=== PATIENT | male | born 1990 | race Caucasian/White ===

== ENCOUNTER 2016-09-24 08:59 | Emergency (ER) | payer OTHER, SELFPAY ==
--- NOTE | 2016-09-24 09:26 | ED.PDOC ---
History of Present Illness - General Chief Complaint: Abdominal Pain Stated Complaint: abd pain and vomitting Time Seen by Provider: 09/24/16 09:22 Source: patient, RN notes reviewed, Vital Signs reviewed Exam Limitations: no limitations - History of Present Illness Initial Comments: Patient is a 25 y/o male with a history of bradycardia who woke up with severe abdominal pain at about 2 am. He then started vomiting at about 5 am. He threw up about 5 times, the last being bilious. His pain initially was a burning, however he is unable to describe it at this time. It started in the epigastric area, and is now fairly generalized. Timing/Duration: 4-6 hours Severity: severe Improving Factors: nothing Worsening Factors: nothing Associated Symptoms: nausea/vomiting Allergies/Adverse Reactions: Allergies NO KNOWN ALLERGY Allergy (Verified 09/24/16 09:25) Home Medications: Ambulatory Orders Aspirin [Aspirin EC] 81 mg PO BEDTIME 05/14/16 Metoprolol Succinate [Metoprolol Succinate ER] 25 mg PO BEDTIME 05/14/16 Acetaminophen W/ Codeine [Tylenol W/ CODEINE #3] 1 ea PO Q6H PRN #15 09/24/16 Divalproex Sodium [Depakote ER] 500 mg PO BID 09/24/16 Ondansetron [Zofran Odt] 8 mg PO Q8H PRN #10 tab 09/24/16 Review of Systems - Review of Systems Constitutional: States: no symptoms reported EENTM: States: nose congestion Respiratory: States: no symptoms reported Cardiology: States: no symptoms reported Gastrointestinal/Abdominal: States: abdominal pain, nausea, vomiting. Denies: constipation, diarrhea Genitourinary: States: no symptoms reported Musculoskeletal: States: back pain - chronic Skin: States: no symptoms reported Neurological: States: no symptoms reported Endocrine: States: no symptoms reported Hematologic/Lymphatic: States: no symptoms reported Past Medical History (General) - Patient Medical History Hx Seizures: Yes - new dx 12/2011 Hx Stroke: No Hx Dementia: No Hx Asthma: No Hx of COPD: No Hx Cardiac Disorders: Yes Hx Congestive Heart Failure: No Hx Pacemaker: Yes - 2012 Hx Hypertension: Yes Hx Thyroid Disease: No Hx Diabetes: No Hx Gastroesophageal Reflux: No Hx Renal Disease: No Hx of HIV: No Hx MRSA: No Surgical History: pacemaker, tonsillectomy - Vaccination History Hx Tetanus, Diphtheria Vaccination: No Hx Influenza Vaccination: No Hx Pneumococcal Vaccination: No Immunizations Up to Date: No - Social History Hx Tobacco Use: No Hx Alcohol Use: No Hx Substance Use: No - Female History Patient : No Family Medical History - Family History Father Family History: No Known Living Status: Still Living Physical Exam - Physical Exam General Appearance: Alert, Comfortable, No apparent distress, Obese Eye Exam: bilateral normal Ears, Nose, Throat: hearing grossly normal, normal ENT inspection Respiratory: lungs clear, normal breath sounds, no respiratory distress, no accessory muscle use Cardiovascular/Chest: regular rate, rhythm, no edema, no gallop, no murmur Gastrointestinal/Abdominal: normal bowel sounds, soft, no organomegaly, tenderness - epigastric and RUQ--+ [place] Extremity: normal range of motion, non-tender, normal inspection, no pedal edema , no calf tenderness Neurologic: alert, normal mood/affect, oriented x 3 Skin Exam: normal color, warm/dry Progress - Results/Orders Results/Orders: 09/24/16 09/24/16 09:13 11:20 Temperature 98.7 F 98.4 F Pulse Rate [ 77 62 monitor] Respiratory 20 Rate Blood Pressure 136/70 109/71 [Left Arm] O2 Sat by Pulse 97 92 L Oximetry Laboratory Results WBC 9.8 K/mm3 (4.8-10.8) 09/24/16 09:30 RBC 4.79 M/mm3 (4.70-6.10) 09/24/16 09:30 Hgb 14.6 gm/dL (14.0-18.0) 09/24/16 09:30 Hct 42.6 % (42.0-52.0) 09/24/16 09:30 MCV 89.0 fl (80.0-94.0) 09/24/16 09:30 MCH 30.5 pg (27.0-31.0) 09/24/16 09:30 MCHC 34.3 g/dL (33.0-37.0) 09/24/16 09:30 RDW 13.6 % (11.5-14.5) 09/24/16 09:30 Plt Count 186 K/mm3 (130-400) 09/24/16 09:30 MPV 9.1 fl (7.40-10.4) 09/24/16 09:30 Absolute Neuts (auto) 4.40 K/uL (1.8-6.8) 09/24/16 09:30 Absolute Lymphs (auto) 4.40 K/uL (1.0-3.4) H 09/24/16 09:30 Absolute Monos (auto) 0.70 K/uL (0.2-0.8) 09/24/16 09:30 Absolute Eos (auto) 0.20 K/uL (0.0-0.4) 09/24/16 09:30 Absolute Basos (auto) 0.10 K/uL (0.0-0.1) 09/24/16 09:30 Neutrophils % 45.2 % (42.0-78.0) 09/24/16 09:30 Lymphocytes % 44.4 % (20.0-50.0) 09/24/16 09:30 Monocytes % 7.6 % (2.0-9.0) 09/24/16 09:30 Eosinophils % 2.0 % (1.0-5.0) 09/24/16 09:30 Basophils % 0.8 % (0.0-2.0) 09/24/16 09:30 Sodium 140 mmol/L (135-145) 09/24/16 09:30 Potassium 4.4 mmol/L (3.6-5.0) 09/24/16 09:30 Chloride 102 mmol/L (101-111) 09/24/16 09:30 Carbon Dioxide 28 mmol/L (21-31) 09/24/16 09:30 Anion Gap 14.4 (12-18) 09/24/16 09:30 BUN 12 mg/dL (7-18) 09/24/16 09:30 Creatinine 0.83 mg/dL (0.6-1.3) 09/24/16 09:30 BUN/Creatinine Ratio 14.5 (10-20) 09/24/16 09:30 Random Glucose 108 mg/dL (70-105) H 09/24/16 09:30 Serum Osmolality 279.7 mOsm/L (275-295) 09/24/16 09:30 Calcium 9.5 mg/dL (8.4-10.2) 09/24/16 09:30 Total Bilirubin 0.3 mg/dL (0.2-1.0) 09/24/16 09:30 AST 47 IU/L (10-42) H 09/24/16 09:30 ALT 94 IU/L (10-60) H 09/24/16 09:30 Alkaline Phosphatase 59 IU/L (42-121) 09/24/16 09:30 Serum Total Protein 7.7 gm/dL (6.4-8.2) 09/24/16 09:30 Albumin 4.1 g/dl (3.2-5.5) 09/24/16 09:30 Globulin 3.6 gm/dL (2.3-3.5) H 09/24/16 09:30 Albumin/Globulin Ratio 1.1 (1.1-1.9) 09/24/16 09:30 Lipase 42 U/L (22-51) 09/24/16 10:30 Urine Color Yellow (Yellow) 09/24/16 09:35 Urine Appearance Clear (Clear) 09/24/16 09:35 Urine pH 7.0 (4.5-7.8) 09/24/16 09:35 Ur Specific [place] >= 1.030 (1.005-1.030) 09/24/16 09:35 Urine Protein Negative mg/dL 09/24/16 09:35 Urine Glucose (UA) Negative mg/dL (Negative) 09/24/16 09:35 Urine Ketones Negative mg/dL (NEGATIVE) 09/24/16 09:35 Urine Blood Negative (Negative) 09/24/16 09:35 Urine Nitrite Negative 09/24/16 09:35 Urine Bilirubin Negative (NEGATIVE) 09/24/16 09:35 Urine Urobilinogen 0.2 mg/dL (0.2-1.0) 09/24/16 09:35 Ur Leukocyte Esterase Negative (Negative) 09/24/16 09:35 Urine RBC 0 /hpf 09/24/16 09:35 Urine WBC 0 /hpf 09/24/16 09:35 Ur Epithelial Cells 0-1 /hpf 09/24/16 09:35 Urine Bacteria 0 09/24/16 09:35 - EKG/XRAY/CT XRAY: abdomen Xray Comments: No acute process Departure - Departure Clinical Impression: Biliary colic symptom Time of Disposition: 12:35 Disposition: Discharge to Home or Self Care Condition: Fair Departure Forms: ED Discharge - Pt. Copy, Patient Portal Self Enrollment Instructions: DI for Abdominal Pain-Adult Diet: low fat, low cholesterol Referrals: Justyna Roa NP [Primary Care Provider] - 1-5 Days Prescriptions: Acetaminophen W/ Codeine [Tylenol W/ CODEINE #3] 1 ea PO Q6H PRN #15 PRN Reason: Abdominal Distress Ondansetron [Zofran Odt] 8 mg PO Q8H PRN #10 tab PRN Reason: Nausea/Vomiting Home Medications: Ambulatory Orders Aspirin [Aspirin EC] 81 mg PO BEDTIME 05/14/16 Metoprolol Succinate [Metoprolol Succinate ER] 25 mg PO BEDTIME 05/14/16 Acetaminophen W/ Codeine [Tylenol W/ CODEINE #3] 1 ea PO Q6H PRN #15 09/24/16 Divalproex Sodium [Depakote ER] 500 mg PO BID 09/24/16 Ondansetron [Zofran Odt] 8 mg PO Q8H PRN #10 tab 09/24/16 Additional Instructions: Follow up in ED for any increasing, non-relenting pain or fever.
[2016-09-24 11:21] VITALS: TEMP 98.4
--- NOTE | 2016-09-24 12:17 | RAD ---
EXAM DESCRIPTION: Abdomen Series CLINICAL HISTORY: RUQ/epigastric pain FINDINGS/ IMPRESSION: Cardiac pacemaker. No acute cardiopulmonary process Normal bowel gas pattern. No pneumatosis or free intraperitoneal air No organomegaly or obvious abdominal mass lesion No pathologic calcification Electronically signed by: Jordy Dubose MD 09/24/2016 12:16 PM [employer]
[2016-09-24 12:48] VITALS: BP 120/80; O2SAT 94
== END 2016-09-24 12:48 | disposition home or self-care (01) ==
LOC: ER 08:59
DX: K80.50 Calculus of bile duct without cholangitis or cholecystitis without obstruction (principal); I10 Essential (primary) hypertension; G40.909 Epilepsy, unspecified, not intractable, without status epilepticus; Z95.0 Presence of cardiac pacemaker; Z79.82 Long term (current) use of aspirin; Z79.899 Other long term (current) drug therapy

== ENCOUNTER → 2017-02-04 | Outpatient (CLI) | payer OTHER | END | disposition home or self-care (01) | LOC: LAB.O 08:13 | PROVIDERS: ATTEND Psychiatry & Neurology Neurology | DX: E55.9 Vitamin D deficiency, unspecified (principal); Z79.899 Other long term (current) drug therapy ==

== ENCOUNTER 2017-05-22 17:09 | Emergency (ER) | payer SELFPAY ==
--- NOTE | 2017-05-22 17:30 | ED.PDOC ---
History of Present Illness - General Chief Complaint: Lower Extremity Injury Stated Complaint: L ankle discomfort Time Seen by Provider: 05/22/17 17:27 Source: patient, RN notes reviewed, Vital Signs reviewed Exam Limitations: no limitations - History of Present Illness Initial Comments: Patient comes in with c/o left ankle pain for 2 days. He is having pain with movement and with walking. Denies any injury. He is concerned he may be having another gout flare up. Occurred: yesterday Pain - Lower Extremity: severe: Left Ankle Method of Injury: unknown Improving Factors: immobilization, rest Worsening Factors: movement Allergies/Adverse Reactions: Allergies NO KNOWN ALLERGY Allergy (Verified 05/22/17 17:22) Home Medications: Ambulatory Orders Aspirin [Aspirin EC] 81 mg PO BEDTIME 05/14/16 Metoprolol Succinate [Metoprolol Succinate ER] 25 mg PO BEDTIME 05/14/16 Divalproex Sodium [Depakote ER] 500 mg PO BID 09/24/16 Indomethacin ER [Indocin ER] 75 mg PO BID #20 cap 05/22/17 Review of Systems - Review of Systems Constitutional: States: no symptoms reported Respiratory: States: no symptoms reported Cardiology: States: no symptoms reported Musculoskeletal: States: see HPI, joint pain - L ankle, joint swelling - L lateral ankle Skin: States: no symptoms reported Neurological: States: no symptoms reported All other Systems: No Change from Baseline Past Medical History (General) - Patient Medical History Hx Seizures: Yes - new dx 12/2011; last seizure 2015 Hx Stroke: No Hx Dementia: No Hx Asthma: No Hx of COPD: No Hx Cardiac Disorders: Yes Hx Congestive Heart Failure: No Hx Pacemaker: Yes - 2011 Hx Hypertension: Yes Hx Thyroid Disease: No Hx Diabetes: No Hx Gastroesophageal Reflux: No Hx Renal Disease: No Hx of HIV: No Hx MRSA: No Surgical History: pacemaker, tonsillectomy - Vaccination History Hx Tetanus, Diphtheria Vaccination: No Hx Influenza Vaccination: No Hx Pneumococcal Vaccination: No - Social History Hx Tobacco Use: No Hx Alcohol Use: No Hx Substance Use: No - Female History Patient : No Family Medical History - Family History Father Family History: No Known Living Status: Still Living Physical Exam - Physical Exam General Appearance: Alert, Comfortable, No apparent distress, Well Developed, Well Groomed, Well Hydrated Cardiovascular/Respiratory: normal peripheral pulses, no respiratory distress Leg: normal inspection, non-tender, no evidence of injury, normal ROM Knee: normal inspection, non-tender, no evidence of injury, normal ROM Ankle: limited ROM - due to pain, pain, soft tissue tenderness - Lateral ankle, swelling - Lateral L ankle, other - Skin is mildly erythematous and warm to touch Foot: normal inspection, non-tender, no evidence of injury, normal ROM Neuro/Tendon: normal sensation, normal motor functions, normal tendon functions , responds to pain, no evidence tendon injury Mental Status: alert, oriented x 3 Skin: warm/dry Comments: Vital Signs 05/22/17 17:16 Temperature 99.1 F Pulse Rate [ 95 H Left Radial] Respiratory 18 Rate Blood Pressure 146/85 [Left Arm] O2 Sat by Pulse 97 Oximetry Progress - Progress Progress: 05/22/17 18:14 Discussed nl X-ray and elevated Uric Acid level Will treat with Indocin ER but does need to follow up with PCP to start daily medication for gout - EKG/XRAY/CT XRAY: ankle - Normal per Radiologist Departure - Departure Clinical Impression: Acute gout of left ankle Qualifiers: Gout etiology: idiopathic Qualified Code(s): M10.072 - Idiopathic gout, left ankle and foot Time of Disposition: 18:16 Disposition: Discharge to Home or Self Care Condition: Good Departure Forms: ED Discharge - Pt. Copy, Patient Portal Self Enrollment, Work Release Form Instructions: DI for Gout Diet: other - Look up a Gout Diet and start following Activity: increase activity as tolerated Referrals: Nallely Marte [employer] [Primary Care Provider] - 1-2 Weeks (To recheck Uric Acid level and start treatment) Prescriptions: Indomethacin ER [Indocin ER] 75 mg PO BID #20 cap Home Medications: Ambulatory Orders Aspirin [Aspirin EC] 81 mg PO BEDTIME 05/14/16 Metoprolol Succinate [Metoprolol Succinate ER] 25 mg PO BEDTIME 05/14/16 Divalproex Sodium [Depakote ER] 500 mg PO BID 09/24/16 Indomethacin ER [Indocin ER] 75 mg PO BID #20 cap 05/22/17
--- NOTE | 2017-05-22 17:49 | RAD ---
EXAM DESCRIPTION: Ankle,Left 3 Views CLINICAL HISTORY: 26 years, Male, Pain with movement COMPARISON: May 14, 2016 TECHNIQUE: AP/lateral/oblique of the ankle FINDINGS: Three views of the left ankle demonstrate soft tissue swelling laterally. Mortise is well-maintained. No fracture or deformity or other abnormalities are noted. Osteonecrosis of the talar dome is not apparent. IMPRESSION: 1. Soft tissue swelling over the lateral malleolus, otherwise normal left ankle. Electronically signed by: Jordy Rogers MD 05/22/2017 5:48 PM CDT
[2017-05-22] MEDS ORDERED: INDOMETHACIN 75 MG PO ONE (18:14)
[2017-05-22 18:28] VITALS: BP 138/84; TEMP 99.4; O2SAT 98
[2017-05-22] MEDS ORDERED: INDOMETHACIN CAP 25 MG CAP PO ONE (18:30)
== END 2017-05-22 18:43 | disposition home or self-care (01) ==
LOC: ER 17:09
DX: M10.072 Idiopathic gout, left ankle and foot (principal); I10 Essential (primary) hypertension; Z95.0 Presence of cardiac pacemaker; Z79.82 Long term (current) use of aspirin; Z79.899 Other long term (current) drug therapy

== ENCOUNTER 2019-06-26 12:56 | Emergency (ER) | payer OTHER, SELFPAY ==
[2019-06-26] MEDS ORDERED: INDOMETHACIN CAP 25 MG CAP PO ONE (14:18)
[2019-06-26] MEDS ORDERED: HYDROcodone 10MG/APAP 325MG 1 EA TAB PO ONE (14:18)
--- NOTE | 2019-06-26 15:35 | ED.PDOC ---
History of Present Illness - General Chief Complaint: General Stated Complaint: R knee pain/non trauma Time Seen by Provider: 06/26/19 14:17 - History of Present Illness Initial Comments: The patient is a 28 year old male with history of sick sinus syndrome s/p AICD placement and history of gout who presents with right knee pain. The patient states that he is not currently on any medications. Says that his knee started gradually hurting two days ago. He was still able to walk on it until today when he has had difficulty walking and bending it. He has been afebrile. No history of trauma. No other complaints at this time. Allergies/Adverse Reactions: Allergies NO KNOWN ALLERGY Allergy (Verified 06/26/19 14:26) Home Medications: Ambulatory Orders Aspirin [Aspirin EC] 81 mg PO BEDTIME 05/14/16 Metoprolol Succinate [Metoprolol Succinate ER] 25 mg PO BEDTIME 05/14/16 Divalproex Sodium [Depakote ER] 500 mg PO BID 09/24/16 Indomethacin ER [Indocin ER] 75 mg PO BID #20 cap 05/22/17 Acetaminophen W/ Codeine [Tylenol W/ CODEINE #3] 1 ea PO Q4HR PRN #20 06/26/19 Colchicine 0.6 mg PO DAILY #20 cap 06/26/19 Indomethacin 50 mg PO TID #30 cap 06/26/19 Review of Systems - Review of Systems Constitutional: Denies: chills, fever, malaise EENTM: States: no symptoms reported Respiratory: States: no symptoms reported Cardiology: States: no symptoms reported Gastrointestinal/Abdominal: States: no symptoms reported Genitourinary: States: no symptoms reported Musculoskeletal: States: joint pain, joint swelling. Denies: muscle pain, muscle stiffness Skin: Denies: change in color, rash Neurological: States: no symptoms reported Endocrine: States: no symptoms reported Hematologic/Lymphatic: States: no symptoms reported All other Systems: Reviewed and Negative Past Medical History (General) - Patient Medical History Hx Seizures: Yes Hx Stroke: No Hx Dementia: No Hx Asthma: No Hx of COPD: No Hx Cardiac Disorders: Yes - Sic sinus syndrome Hx Congestive Heart Failure: No Hx Pacemaker: Yes Hx Hypertension: No Hx Thyroid Disease: No Hx Diabetes: No Hx Gastroesophageal Reflux: Yes Hx Renal Disease: No Hx Cancer: No Hx of HIV: No Hx MRSA: No Surgical History: pacemaker, tonsillectomy, other - Vaccination History Hx Tetanus, Diphtheria Vaccination: No Hx Influenza Vaccination: No Hx Pneumococcal Vaccination: No - Social History Hx Tobacco Use: No Hx Alcohol Use: No Hx Substance Use: No Hx Substance Use Treatment: No Hx Depression: No - Female History Patient is a Female of Child Bearing Age (10 -59 yrs old): No Patient : No Family Medical History - Family History Father Family History: No Known Living Status: Still Living Physical Exam - Physical Exam General Appearance: Comfortable, No apparent distress, Well Developed, Well Nourished Ears, Nose, Throat: hearing grossly normal Respiratory: no respiratory distress Extremity: other - Swelling to right knee, ROM limited by pain. No erythema or warmth. Neurovascularly intact distally Neurologic: no motor/sensory deficits Progress - Progress Progress: 06/26/19 15:49 Patient reassessed, evaluation is consistent with acute gout. Will continue outpatient management with colchicine and indomethacin. He will follow up with his PCP. Home care instructions and return indications reviewed. 06/26/19 19:03 MDM: Patient present with right knee pain, workup as below. There is no radiographic evidence for acute injury. There is no erythema, warmth or leukocytosis. No evidence for acute infection. He has history of gout and uric acid level is high, suspect this is the etiology of his arthritis. Will continue outpatient management with NSAIDs, cholchicine and he will follow up with his PCP. Home care instructions and return indications reviewed. - Results/Orders Results/Orders: Laboratory Results - last 24 hr 06/26/19 06/26/19 06/26/19 14:44 14:44 14:44 WBC 10.5 RBC 5.11 Hgb 15.1 Hct 44.6 MCV 87.3 MCH 29.7 MCHC 34.0 RDW 13.5 Plt Count 185 MPV 9.2 Absolute Neuts (auto) 6.60 Absolute Lymphs (auto) 2.90 Absolute Monos (auto) 0.60 Absolute Eos (auto) 0.20 Absolute Basos (auto) 0.10 Neutrophils % 63.3 Lymphocytes % 28.1 Monocytes % 6.0 Eosinophils % 1.7 Basophils % 0.9 ESR 35 H Sodium 139 Potassium 4.0 Chloride 101 Carbon Dioxide 28 Anion Gap 14.0 BUN 10 Creatinine 0.87 BUN/Creatinine Ratio 11.5 Random Glucose 129 H Serum Osmolality 278.3 Uric Acid Calcium 9.6 C-Reactive Protein 5.4 H 06/26/19 14:44 WBC RBC Hgb Hct MCV MCH MCHC RDW Plt Count MPV Absolute Neuts (auto) Absolute Lymphs (auto) Absolute Monos (auto) Absolute Eos (auto) Absolute Basos (auto) Neutrophils % Lymphocytes % Monocytes % Eosinophils % Basophils % ESR Sodium Potassium Chloride Carbon Dioxide Anion Gap BUN Creatinine BUN/Creatinine Ratio Random Glucose Serum Osmolality Uric Acid 9.0 H Calcium C-Reactive Protein - EKG/XRAY/CT Xray Comments: No acute disease Departure - Departure Clinical Impression: Acute gout Qualifiers: Gout site: knee Encounter type: initial encounter Laterality: right Time of Disposition: 15:58 Disposition: Discharge to Home or Self Care Condition: Fair Departure Forms: ED Discharge - Pt. Copy, Patient Portal Self Enrollment Instructions: Gout, Lifestyle Changes to Manage Gout, Gout (DC) Diet: resume usual diet Activity: increase activity as tolerated Prescriptions: Acetaminophen W/ Codeine [Tylenol W/ CODEINE #3] 1 ea PO Q4HR PRN #20 PRN Reason: Pain Colchicine 0.6 mg PO DAILY #20 cap Indomethacin 50 mg PO TID #30 cap Home Medications: Ambulatory Orders Aspirin [Aspirin EC] 81 mg PO BEDTIME 05/14/16 Metoprolol Succinate [Metoprolol Succinate ER] 25 mg PO BEDTIME 05/14/16 Divalproex Sodium [Depakote ER] 500 mg PO BID 09/24/16 Indomethacin ER [Indocin ER] 75 mg PO BID #20 cap 05/22/17 Acetaminophen W/ Codeine [Tylenol W/ CODEINE #3] 1 ea PO Q4HR PRN #20 06/26/19 Colchicine 0.6 mg PO DAILY #20 cap 06/26/19 Indomethacin 50 mg PO TID #30 cap 06/26/19 Comments: Chaparro Chapa MD Emergency Medicine Physician Number [id number]
--- NOTE | 2019-06-26 15:49 | RAD ---
EXAM DESCRIPTION: XR Knee, Right 2 Views CLINICAL HISTORY: 28 years Male, pain, swelling COMPARISON: None. FINDINGS: There is no evidence of acute fracture or dislocation or destructive bony lesion. Joint spaces appear maintained. There appears to be some soft tissue swelling in the prepatellar region and anterior to the patellar tendon. Faintly increased soft tissue density in the suprapatellar region is not very suspicious for joint effusion. IMPRESSION: No bony abnormality identified in the right knee. Electronically signed by: Dwain Mead MD 06/26/2019 3:47 PM [facility]
[2019-06-26 16:56] VITALS: BP 144/79; TEMP 98.1; O2SAT 96
== END 2019-06-26 16:50 | disposition home or self-care (01) ==
LOC: ER 12:56
DX: M10.9 Gout, unspecified (principal); I49.5 Sick sinus syndrome; K21.9 Gastro-esophageal reflux disease without esophagitis; R56.9 Unspecified convulsions; Z95.0 Presence of cardiac pacemaker; Z79.899 Other long term (current) drug therapy